=== PATIENT | female | born 1960 | race Two or more races ===

== ENCOUNTER 2020-04-13 12:28 | Emergency (ER) | payer OTHER ==
[~2020-04-13] VITALS: Ht 160 cm; Wt 63.5 kg
[2020-04-13 14:25] LABS: BASOPHILS % (AUTO) 0.3 % (0.0-2.0); EOSINOPHILS % (AUTO) 0.5 % (0.0-6.0); HEMATOCRIT 33 % (33-45); HEMOGLOBIN 11.1 g/dL (11.5-14.8); LYMPHOCYTES # (AUTO) 0.5 /CMM (0.8-4.8); LYMPHOCYTES % (AUTO) 10.1 % (20.0-44.0); MEAN CORPUSCULAR HGB CONC 33 g/dl (31.0-36.0); MEAN CORPUSCULAR VOLUME 86 fL (82-100); MONOCYTES # (AUTO) 0.2 /CMM (0.1-1.30); MONOCYTES % (AUTO) 4.1 % (2.0-12.0); NEUTROPHILS # (AUTO) 4.6 /CMM (1.8-8.9); PLATELET COUNT (AUTO) 195 /CMM (150-450); RED BLOOD CELL COUNT(AUTO) 3.87 MIL/uL (4.0-5.2); WHITE BLOOD COUNT (AUTO) 5.4 K/uL (4.3-11.0)
[2020-04-13] MEDS ORDERED: DEXAMETHASONE SOD PHOSPHATE 4 MG/ML VIAL ONE (14:31)
[2020-04-13 14:33] LABS: CALCIUM, SERUM 8.8 mg/dL (8.5-10.1); CARBON DIOXIDE 28 mmol/L (21-32); CHLORIDE 96 mmol/L (98-107); CREATININE 0.8 mg/dL (0.6-1.3); GLUCOSE 115 mg/dL (74-106); POTASSIUM 3.9 mmol/L (3.5-5.1); SODIUM SERUM 133 mmol/L (136-145); UREA NITROGEN, BLOOD 13 mg/dL (7-18)
[2020-04-13] MEDS: DEXAMETHASONE SOD PHOSPHATE 10 MG/ML VIAL IV ONE (14:40)
[2020-04-13 14:43] LABS: D-DIMER 1.4 mg/L(FEU (0.17-0.50)
[2020-04-13 14:47] LABS: ALANINE AMINOTRANSFERASE 16 U/L (12-78); ALBUMIN 3.4 g/dL (3.4-5.0); ALKALINE PHOSPHATASE 68 U/L (46-116); ASPARTATE AMINOTRANSFERASE 18 U/L (15-37); B-TYPE NATRIURETIC PEPTIDE 191 PG/ML (0-125); BILIRUBIN,TOTAL 0.5 mg/dL (0.2-1.0); TOTAL PROTEIN, SERUM 8.2 g/dL (6.4-8.2)
[2020-04-13] MEDS: IV NS 0.9% 500 ML IV ONE (14:48)
[2020-04-13 14:49] LABS: CREATINE KINASE, TOTAL 30 U/L (26-192); FERRITIN 575 ng/mL (8-388)
[2020-04-13 14:51] LABS: C-REACTIVE PROTEIN 25.1 mg/dL (0.0-0.9)
--- NOTE | 2020-04-13 15:00 | NUR ---
Patient a/ox4, breathing even and unlabored, denies pain at this time. Vitals stable. On room air with spo2 95%. needs attended.
[2020-04-13] MEDS ORDERED: ONDANSETRON HCL/PF 4 MG/2 ML VIAL ONE (15:01)
[2020-04-13] MEDS: ONDANSETRON HCL/PF 4 MG/2 ML VIAL IV ONE (15:02)
--- NOTE | 2020-04-13 15:37 | NUR ---
Patient a/ox4, breathing even and unlabored, no sob noted. Needs attended. Kept comfortable. IV removed. Catheter intact and site benign. Pressure and 4x4 applied to site. No bleeding noted.Patient discharged to home in stable condition. Written and verbal after care instructions given. Patient verbalizes understanding of instruction.
[2020-04-13 15:46] VITALS: BP 121/60
== END 2020-04-13 15:46 | disposition home or self-care (01) ==
LOC: ER 13:32
DX: U07.1 COVID-19 (principal); R53.1 Weakness; R11.0 Nausea
CPT/HCPCS: 71045; 80053; 82550; 82728; 83605; 83615; 83880; 84145; 84484; 85025; 85378; 85730; 86140; 87040 ×2; 93005; 96374; 96375; 99285; J1100; J2405; J7040; 36415